=== PATIENT | male | born 1960 ===

== ENCOUNTER → 2025-05-29 13:40 | Outpatient (BNVA) | payer OTHER, SELFPAY | PROVIDERS: Visit Provider Student in an Organized Health Care Education/Training Program | DX: Z12.11 Encounter for screening for malignant neoplasm of colon (principal) | CPT/HCPCS: 99204 ==

== ENCOUNTER 2025-06-06 09:24 | Day surgery (SDC) | payer OTHER, SELFPAY ==
[2025-06-06 09:57] VITALS: BP 146/81; PULSE 68; RESP 20; TEMP 36.3; O2SAT 68; BMI 25.0
--- NOTE | 2025-06-06 10:09 | ANES.PREANE2 ---
Pre-Anesthetic Assessment Height/Weight: Height 1.65 m Weight 68.039 kg Temp Pulse Resp BP Pulse Ox O2 Del Method 97.4 F L 68 20 H 146/81 68 L Room Air 06/06/25 09:57 06/06/25 09:57 06/06/25 09:57 06/06/25 09:57 06/06/25 09:57 06/06/25 09:57 Operation Date: 06/06/25 11:15 Proposed Procedures p Colonoscopy 41588 G0121 Z12.11(Not Applicable) - Ranjit Meneses MD Familial anesthetic complications: None Was Beta Radha taken within 24 hours: Yes Was Clonidine taken within 24 hours: N/A Last intake: Intake Last Liquid Date 06/05/25 Last Liquid Time 20:00 Last Solid Date 06/04/25 Last Solid Time 20:00 Social Tobacco (Chews) marijuana - last use 2 days ago Exam alert, oriented x 3, clear to auscultation bilaterally and regular rate & rhythm Airway Mallampati: Class I Dentition: partials CV/HEM Hypertension and Myocardial Infarction (stents no longer on blood thinners) Anesthetic Plan ASA status: 3 Anesthesia: MAC Risk of > 500 ml blood loss (7ml/kg in children): No Medications/Allergies Home Medications ?Medication ?Instructions ?Recorded ?Confirmed ?Last Taken ?Type aspirin 81 mg tablet,delayed 81 mg PO DAILY 05/29/25 06/06/25 06/04/25 History release (Adult Aspirin Regimen) atorvastatin 80 mg tablet (Lipitor) 80 mg PO DAILY 05/29/25 06/06/25 06/04/25 History diclofenac sodium 1 % topical gel 2 g topical QID PRN Pain 05/29/25 06/06/25 06/02/25 History (Arthritis Pain (diclofenac)) lidocaine 5 % topical patch 1 patch topical DAILY PRN Pain 05/29/25 06/06/25 06/04/25 History (DermacinRx Lidocan) lisinopril 5 mg tablet 5 mg PO DAILY 05/29/25 06/06/25 06/04/25 History loratadine 10 mg tablet (Allergy 10 mg PO DAILY 05/29/25 06/06/25 06/04/25 History Relief (loratadine)) meclizine 25 mg chewable tablet 25 mg PO TID PRN Vertigo 05/29/25 06/06/25 06/04/25 History (Dramamine (meclizine)) metoprolol tartrate 25 mg tablet 12.5 mg PO BID 05/29/25 06/06/25 06/06/25 History Allergies Allergy/AdvReac Type Severity Reaction Status Date / Time clopidogrel Allergy Severe Unknown Verified 06/06/25 09:48 Current Medications Generic Name Dose Route Start Last Admin Trade Name Freq PRN Reason Stop Dose Admin Sodium Chloride 1,000 mls @ 15 mls/hr 06/06/25 09:46 06/06/25 10:07 Sodium Chloride 0.9% IV 06/07/25 09:45 15 mls/hr .Q24H PRN Administration COLONOSCOPY FLUIDS PFSH Anesthesia Social History Smoking and tobacco/nicotine status: never used tobacco/nicotine
--- NOTE | 2025-06-06 10:56 | W.PM.OPSUD ---
Surgery/Procedure H&P Update DATE OF PROCEDURE: June 06, 2025 DATE H&P PERFORMED: 05/29/25 H&P UPDATE INFORMATION: I have reviewed H&P completed within last 30 days, I have examined patient prior to procedure, No changes to prior documentation and Risks and benefits of the procedure reviewed PLANNED PROCEDURE: Operation Date: 06/06/25 11:15 Proposed Procedures p Colonoscopy [id number] G0121 Z12.11(Not Applicable) - Ranjit Meneses MD
[2025-06-06 11:20] VITALS: BP 113/74; PULSE 61; RESP 18; TEMP 36.2; O2SAT 99
[2025-06-06 11:50] VITALS: BP 126/77; PULSE 63; RESP 16; O2SAT 99
--- NOTE | 2025-06-06 11:50 | ANE.PACU2 ---
Inpatient post-anesthesia follow up: Airway intact: Yes Vital signs: Temperature 97.2 F Pulse Rate 63 Respiratory Rate 16 Blood Pressure 126/77 Pulse Oximetry 99 Oxygen Delivery Me thod Room Air Oxygen Flow Rate Fraction of Inspir ed Oxygen Hydration adequate: Yes Nausea and vomiting: No Pain level: 1 Mental status: Baseline
== END 2025-06-06 11:50 | disposition home or self-care (01) ==
PROVIDERS: PCP Family Medicine Geriatric Medicine; Visit Provider Student in an Organized Health Care Education/Training Program
PROC: 0DJD8ZZ Inspection of Lower Intestinal Tract, Via Natural or Artificial Opening Endoscopic (ICD-10-PCS; CPT 45378; principal; 2025-06-06 11:15)
DX: Z12.11 Encounter for screening for malignant neoplasm of colon (principal); R19.5 Other fecal abnormalities; I10 Essential (primary) hypertension; I25.2 Old myocardial infarction; Z79.82 Long term (current) use of aspirin
CPT/HCPCS: 45378; J2704; J7030

== ENCOUNTER → 2025-06-12 13:49 | Outpatient (BNVA) | payer OTHER, SELFPAY | PROVIDERS: PCP Family Medicine Geriatric Medicine; Visit Provider Internal Medicine Cardiovascular Disease | DX: R07.89 Other chest pain (principal) | CPT/HCPCS: 93005 ==

== ENCOUNTER 2025-06-20 09:50 | Outpatient (CLI) | payer OTHER, SELFPAY ==
--- NOTE | 2025-06-20 10:00 | USCV_ITS ---
Jayden Lezama Age: 64 Gender: M : 1960 Exam Date: 06/20/2025 10:12 Ordering Phys: Leticia Durand MD ([email or web address]) Technologist: NURYS Exam Location: [facility] [place] Indication: Preop clearance BP: 120 / 74 HR: 62 Rhythm: Sinus Technical Quality: MEASUREMENTS (Male / Female) Normal Values 2D ECHO LV Diastolic Diameter PLAX 4.7 cm 4.2 - 5.9 / 3.9 - 5.3 cm IVS Diastolic Thickness 0.7 cm 0.6 - 1.0 / 0.6 - 0.9 cm IVS Systolic Thickness 1.1 cm LVPW Diastolic Thickness 1.1 cm 0.6 - 1.0 / 0.6 - 0.9 cm LVPW Systolic Thickness 1.2 cm LVOT Diameter 2.0 cm LV Ejection Fraction 2D Teich 41.1 % LV Ejection Fraction MOD 4C 56.6 % LV Ejection Fraction MOD 2C 48.7 % LV Ejection Fraction 2C AL 53.4 % LA Diameter 2.7 cm RA Systolic Volume 4C AL 32.5 ml RA Systolic Volume 4C MOD 30.2 ml LA Sys Volume AL 35.2 cm cubed LA Sys Volume Index AL 19.5 cm cubed/m squared Aorta at Sinotubular Diameter 3.0 cm IVC Diameter 1.5 cm M-MODE LA Ao Ratio MM 1.1 AV Cusp Separation MM 2.0 cm DOPPLER AV Peak Velocity 135.0 cm/s LVOT Peak Velocity 85.0 cm/s AV Area Cont Eq vti 2.2 cm squared AV Area Cont Eq pk 1.9 cm squared MV Peak Velocity 130.0 cm/s MV Area PHT 5.0 cm squared Mitral E to A Ratio 0.9 TR Peak Velocity 79.0 cm/s TR Peak Gradient 2.5 mmHg TV Peak E Velocity 69.0 cm/s PV Peak Velocity 88.0 cm/s FINDINGS Left Ventricle Normal left ventricular size, systolic function and wall thickness, with no regional wall motion abnormalities. Left ventricular ejection fraction is estimated at 60%. Grade I/IV diastolic dysfunction (abnormal relaxation filling pattern), normal to mildly elevated filling pressures. Right Ventricle Normal right ventricular size and systolic function. Right Atrium Normal right atrial size. Left Atrium Normal left atrial size. IA Septum Normal appearance of the interatrial septum. Mitral Valve Mildly thickened mitral valve. No mitral valve stenosis. Trace mitral valve regurgitation. Aortic Valve Moderate aortic valve calcification. No aortic valve stenosis. Mild aortic valve regurgitation. Tricuspid Valve Normal tricuspid valve structure. No tricuspid valve stenosis or regurgitation. Normal pulmonary pressure. Pulmonic Valve Normal pulmonic valve structure. No pulmonic valve stenosis or regurgitation. Pericardium No pericardial effusion. Aorta Normal diameter of the aortic root and ascending thoracic aorta. IVC Normal IVC diameter. CONCLUSIONS Normal left ventricular size, systolic function and wall thickness, with no regional wall motion abnormalities. Left ventricular ejection fraction is estimated at 60%. Grade I/IV diastolic dysfunction (abnormal relaxation filling pattern), normal to mildly elevated filling pressures. Mildly thickened mitral valve. No mitral valve stenosis. Trace mitral valve regurgitation. Moderate aortic valve calcification. No aortic valve stenosis. Mild aortic valve regurgitation. There is no pericardial effusion. Right atrial pressure is around 5 mm of mercury. Leticia Durand MD (Electronically Signed) Final Date: 26 June 2025 20:15 S
== END 2025-06-20 09:51 | disposition home or self-care (01) ==
LOC: RAD 09:52
PROVIDERS: PCP Family Medicine Geriatric Medicine; Visit Provider Internal Medicine Cardiovascular Disease
DX: I25.10 Atherosclerotic heart disease of native coronary artery without angina pectoris (principal); Z01.818 Encounter for other preprocedural examination; R93.1 Abnormal findings on diagnostic imaging of heart and coronary circulation; I05.9 Rheumatic mitral valve disease, unspecified; I35.8 Other nonrheumatic aortic valve disorders; I35.1 Nonrheumatic aortic (valve) insufficiency
CPT/HCPCS: 93306